=== PATIENT | female | born 1995 | race Caucasian/White ===

== ENCOUNTER 2021-11-17 11:08 | Outpatient (CLI) | payer BC, SELFPAY ==
[2021-11-17 11:29] LABS: Amphetamine Urine VISTA NEGATIVE (<1000 ng/mL); Barbiturate Urine VISTA NEGATIVE (< 200 ng/mL); Benzodiazepine Urine VISTA NEGATIVE (< 200 ng/mL); Cocaine Urine VISTA NEGATIVE (< 300 ng/mL); Ecstacy Urine VISTA NEGATIVE (< 500 ng/mL); Methadone Urine VISTA NEGATIVE (< 300 ng/mL); PCP Urine VISTA NEGATIVE (< 25 ng/mL); THC Urine VISTA NEGATIVE (< 50 ng/mL); Vista UDS pH Range 6
[2021-11-18 22:07] LABS: Chlamydia By Nucleic Acid AMP Negative (Negative)
[2021-11-18 22:40] LABS: Gonococcus By Nucleic Acid AMP Negative (Negative)
[2021-11-24 17:33] LABS: HPV Reflexed? NOT INDICATED
== END 2021-11-17 23:59 | disposition home or self-care (01) ==
LOC: LABSPEC 11:11
PROVIDERS: Visit Provider Obstetrics & Gynecology
DX: Z34.80 Encounter for supervision of other normal pregnancy, unspecified trimester (principal)
CPT/HCPCS: 80307; 87086; 87491; 87591; 88175; G0145